=== PATIENT | male | born 1985 | race Two or more races ===

== ENCOUNTER 2024-03-27 14:45 | Inpatient (IN) | payer OTHER ==
[~2024-03-27] VITALS: Ht 172.7 cm; Wt 83.0 kg
[2024-03-27] MEDS ORDERED: ZOLPIDEM TARTRATE 5 MG TABLET PO PRN (16:00)
[2024-03-27] MEDS ORDERED: ACETAMINOPHEN 325 MG TABLET PO PRN (16:00)
[2024-03-27] MEDS ORDERED: MAGNESIUM HYDROXIDE SUSPENSION 30 ML UDCUP PO PRN (16:00)
[2024-03-27 16:08] LABS: BASOPHILS % (AUTO) 0.7 % (0.0-2.0); EOSINOPHILS % (AUTO) 2.3 % (1.0-6.0); HEMATOCRIT 45.1 % (41-53); HEMOGLOBIN 14.5 g/dL (13.5-17.5); LYMPHOCYTES % (AUTO) 28.1 % (22.0-44.0); MEAN CORPUSCULAR HEMOGLOBIN 23.1 pg (26.0-34.0); MEAN CORPUSCULAR HGB CONC 32.2 G/dL (31.0-37.0); MEAN CORPUSCULAR VOLUME 72 fL (80-100); MONOCYTES # (AUTO) 0.7 K/uL (0.1-1.0); MONOCYTES % (AUTO) 6.5 % (2.0-9.0); NEUTROPHILS # (AUTO) 6.7 K/uL (1.8-7.7); NEUTROPHILS % (AUTO) 62.4 % (40.0-70.0); PLATELET COUNT (AUTO) 247 K/uL (150-450); RED CELL DISTRIBUTION WIDTH 15.6 % (11.5-14.5); WHITE BLOOD COUNT (AUTO) 10.8 K/uL (4.5-11.0)
[2024-03-27] MEDS ORDERED: [UNRECOGNIZED DRUG - REMARK] PO (16:15)
[2024-03-27 16:21] LABS: ANION GAP 8 mmol/L (8-16); CALCIUM, TOTAL 8.8 mg/dL (8.8-10.5); CARBON DIOXIDE 29 mmol/L (22-29); CHLORIDE 100 mmol/L (98-107); CREATININE 0.88 mg/dL (0.60-1.30); GLOMERULAR FILTR. RATE CALC > 60 mL/min (>60); GLUCOSE,RANDOM 105 mg/dL (70-110); POTASSIUM 4.3 mmol/L (3.5-5.1); SODIUM SERUM 137 mmol/L (136-145); UREA NITROGEN, BLOOD 14 mg/dL (7-18)
[2024-03-27 16:29] LABS: ALCOHOL, BLOOD (SERUM) < 3 mg/dL (0-10)
[2024-03-27 16:30] LABS: RBC MORPHOLOGY COMMENT ABNORMAL RBC MORPH
[2024-03-27 17:49] LABS: COVID AG,FIA SOURCE NASAL SWAB
[2024-03-27 18:10] LABS: SARS-COV2 (COVID) ANTIGEN,FIA Negative (Negative)
[2024-03-27 18:53] VITALS: RESP 16
[2024-03-27 19:28] VITALS: BP 109/52; PULSE 69; RESP 19; TEMP 97.7; O2SAT 97
[2024-03-28 06:11] VITALS: BP 100/52; PULSE 64; RESP 19; TEMP 97.8; O2SAT 99
[2024-03-28 08:02] VITALS: BP 102/61; PULSE 68; RESP 18; TEMP 98; O2SAT 98
[2024-03-28] MEDS: NICOTINE 21 MG/24 HOUR PATCH TD SCH (09:02)
== END 2024-03-28 16:24 | DRG 881 ==
LOC: EMS 14:45 → EDH 15:58 → 6S 17:57
PROVIDERS: ADMIT Internal Medicine; ATTEND Internal Medicine
PROC: GZ56ZZZ Individual Psychotherapy, Supportive (ICD-10-PCS; principal; 2024-03-28)
DX: F32.9 Major depressive disorder, single episode, unspecified (principal); R45.851 Suicidal ideations; I10 Essential (primary) hypertension; Z87.891 Personal history of nicotine dependence; Z20.822 Contact with and (suspected) exposure to COVID-19
CPT/HCPCS: 80048; 85025; 99285; G0480